=== PATIENT | female | born 1970 | race Caucasian/White ===

== ENCOUNTER 2020-06-21 12:38 | Emergency (ER) | payer OTHER ==
[~2020-06-21] VITALS: Ht 167.6 cm; Wt 64.9 kg
[~2020-06-21 12:38] MED LIST: AZIT250T13 PO
[2020-06-21] MEDS ORDERED: IV NORMAL SALINE 1000 ML BAG IV ONE (13:15)
--- NOTE | 2020-06-21 13:18 | NUR ---
PT IS IN ROOM #2A. DR SILVER EVALUATED THE PT.
[2020-06-21 13:21] LABS: BASOPHILS % (AUTO) 0.3 % (0.0-2.0); EOSINOPHILS # (AUTO) 0.1 K/uL (0.0-0.7); EOSINOPHILS % (AUTO) 1.7 % (0.0-7.0); HEMATOCRIT 37.6 % (31.2-41.9); HEMOGLOBIN 12.2 g/dL (10.9-14.3); LYMPHOCYTES # (AUTO) 2.4 K/uL (20.0-40.0); LYMPHOCYTES % (AUTO) 45.7 % (20.5-51.5); MEAN CORPUSCULAR HEMOGLOBIN 28.3 uug (24.7-32.8); MEAN CORPUSCULAR HGB CONC 33 g/dL (32.3-35.6); MEAN CORPUSCULAR VOLUME 87.3 fL (75.5-95.3); MONOCYTES # (AUTO) 0.3 K/uL (2.0-10.0); MONOCYTES % (AUTO) 6.1 % (0.0-11.0); NEUTROPHILS # (AUTO) 2.5 K/uL (1.8-8.9); NEUTROPHILS % (AUTO) 46.2 % (38.5-71.5); PLATELET COUNT (AUTO) 177 K/uL (179-408); RED BLOOD CELL COUNT(AUTO) 4.31 MIL/uL (3.63-4.92); WHITE BLOOD COUNT (AUTO) 5.4 K/uL (3.8-11.8)
[2020-06-21 13:21] LABS: *URINE HCG, QUAL NEGATIVE (NEGATIVE)
[2020-06-21 13:30] LABS: CREATININE 0.7 mg/dL (0.6-1.3); POTASSIUM 3.7 mmol/L (3.5-5.1)
[2020-06-21 13:31] LABS: *BILIRUBIN,URIN NEGATIVE (NEGATIVE); *BLOOD, URINE TRACE (NEGATIVE); *CLARITY,URINE CLEAR (CLEAR); *COLOR,URINE YELLOW (YELLOW); *KETONES,URINE NEGATIVE (NEGATIVE); *UROBILINOGEN,URINE 0.2 E.U./dl (NORMAL); LEUKOCYTE ESTERASE ,URINE NEGATIVE (NEGATIVE); NITRITE, URINE NEGATIVE (NEGATIVE); PH,URINE 5.5 (5.0-8.0); UGLUCOSE NEGATIVE (NEGATIVE)
[2020-06-21 13:36] LABS: BILIRUBIN,DIRECT 0.1 mg/dL (0.0-0.2); BILIRUBIN,TOTAL 0.2 mg/dL (0.2-1.0); TOTAL PROTEIN, SERUM 7.9 g/dL (6.4-8.2)
[2020-06-21 13:45] LABS: *AMPHETAMINE, URINE NEGATIVE (NEGATIVE); *CANNABINOID, URINE NEGATIVE (NEGATIVE); *COCCAINE, URINE NEGATIVE (NEGATIVE); *OPIATE, URINE NEGATIVE (NEGATIVE); *PHENCYCLIDINE SCREEN,URINE NEGATIVE (NEGATIVE)
[2020-06-21] MEDS ORDERED: KETOROLAC TROMETHAMINE 15 MG INJ IVP ONE (14:15)
[2020-06-21] MEDS ORDERED: KETOROLAC TROMETHAMINE 15 MG INJ ONE (14:34)
[2020-06-21] MEDS ORDERED: IBUP-1955 PO (14:39)
[2020-06-21] MEDS ORDERED: TAMS-3 PO (14:39)
--- NOTE | 2020-06-21 14:40 | NUR ---
PT WAS D/C'd TO HOME. D/C INSTRUCTIONS GIVEN TO THE PT BY DR SILVER.
[2020-06-21 14:41] VITALS: BP 128/72
[2020-06-21 18:44] LABS: BACTERIA,URINE NONE SEEN /HPF (NONE SEEN); SQUAMOUS EPITHELIAL CELL,UR MODERATE /HPF (NONE SEEN); URINE AMORPHOUS URATE FEW /HPF; WBC,URINE 0-3 /HPF (0-3)
== END 2020-06-21 14:58 | disposition home or self-care (01) ==
LOC: ER 12:38
DX: N13.30 Unspecified hydronephrosis (principal); R10.31 Right lower quadrant pain; Z86.11 Personal history of tuberculosis; Z86.16 Personal history of COVID-19
CPT/HCPCS: 36415; 74176; 80048; 80076; 80307; 81001; 83690; 84703; 85025; 96361; 96374; 99284; J1885; A4663; J7030

== ENCOUNTER 2020-08-31 19:35 | Emergency (ER) | payer OTHER ==
[~2020-08-31] VITALS: Ht 165.1 cm; Wt 58.1 kg
[~2020-08-31 19:35] MED LIST changes: +IBUP-1955 PO; +TAMS-3 PO
[2020-08-31] MEDS ORDERED: OXYCODONE/APAP 5-325 MG TABLET PO ONE (20:45)
[2020-08-31] MEDS ORDERED: PROCHLORPERAZINE MALEATE 5 MG TABLET PO ONE (20:45)
[2020-08-31] MEDS ORDERED: PROCHLORPERAZINE MALEATE 5 MG TABLET ONE (20:54)
[2020-08-31] MEDS ORDERED: OXYCODONE/APAP 5-325 MG TABLET ONE (20:54)
--- NOTE | 2020-08-31 20:55 | NUR ---
Pt off to CT at this time.
[2020-08-31] MEDS ORDERED: PROC5TAB59 PO (21:41)
[2020-08-31] MEDS ORDERED: OXYC-128 PO ×2 (21:42→21:46)
[2020-08-31 22:05] VITALS: BP 124/72
== END 2020-08-31 22:00 | disposition home or self-care (01) ==
LOC: ER 19:39
DX: S06.0X0A Concussion without loss of consciousness, initial encounter (principal); S16.1XXA Strain of muscle, fascia and tendon at neck level, initial encounter; V49.50XA Passenger injured in collision with unspecified motor vehicles in traffic accident, initial encounter; Y92.410 Unspecified street and highway as the place of occurrence of the external cause; Z86.16 Personal history of COVID-19; Z86.11 Personal history of tuberculosis
CPT/HCPCS: 70450; 72125; 99285; J8499; A4663